=== PATIENT | male | born 1955 | race Caucasian/White ===

== ENCOUNTER 2017-03-26 11:49 | Emergency (ER) | payer BC, OTHER ==
--- NOTE | 2017-03-26 13:00 | EDM.PDOC ---
ED HPI GENERAL MEDICAL PROBLEM - General Chief Complaint: Lower Extremity Injury/Pain Stated Complaint: HURT LT ANKLE/ACHILLES Time Seen by Provider: 03/26/17 12:00 Source of Information: Reports: Patient, Family History Limitations: Reports: No Limitations - History of Present Illness INITIAL COMMENTS - FREE TEXT/NARRATIVE: pt arrived with pain in his heel area and achilles tendon area. He stepped out of the boat and heard something crack Onset: Today, Other ( pt stepped onto the boat and he heard something crack. ) Duration: Hour(s): Location: Reports: Lower Extremity, Right Associated Symptoms: Reports: No Other Symptoms Left Ankle Pain Score (Numeric/FACES): 2 - Related Data Allergies Allergy/AdvReac Type Severity Reaction Status Date / Time lisinopril Allergy Swelling Verified 03/26/17 12:04 Sulfa (Sulfonamide Allergy Hives Verified 03/26/17 12:04 Antibiotics) Home Meds: Home Meds Acetaminophen/HYDROcodone [[place] 325-10 MG] 1 tab PO ASDIRECTED PRN 03/26/17 [ History] Albuterol [IJD: Albuterol HFA] 03/26/17 [History] Budesonide/Formoterol Fumarate [Symbicort 160-4.5 Mcg Inhaler] 03/26/17 [ History] Furosemide [Lasix] 40 mg PO BID 03/26/17 [History] Gabapentin [Neurontin] 400 mg PO TID 03/26/17 [History] Metoprolol Succinate [Toprol Xl] 03/26/17 [History] SitaGLIPtin [Januvia] 03/26/17 [History] glipiZIDE [Glipizide ER] 10 mg PO DAILY 03/26/17 [History] metFORMIN [Glucophage] 1,000 mg PO BID 03/26/17 [History] Past Medical History Cardiovascular History: Reports: Hypertension Respiratory History: Reports: Asthma Musculoskeletal History: Reports: Arthritis, Back Pain, Chronic Neurological History: Reports: Neuropathy, Diabetic Endocrine/Metabolic History: Reports: Diabetes, Type II, Obesity/BMI 30+ Oncologic (Cancer) History: Reports: Prostate - Past Surgical History Other HEENT Surgeries/Procedures: deviated septum Male Surgical History: Reports: Prostatectomy Social & Family History - Tobacco Use Smoking Status *Q: Never Smoker - Caffeine Use Caffeine Use: Reports: None, Soda - Recreational Drug Use Recreational Drug Use: No Review of Systems - Review of Systems Review Of Systems: See Below Constitutional: Reports: No Symptoms Eyes: Reports: No Symptoms Ears: Reports: No Symptoms Nose: Reports: No Symptoms Mouth/Throat: Reports: No Symptoms Respiratory: Reports: No Symptoms Cardiovascular: Reports: No Symptoms GI/Abdominal: Reports: No Symptoms Genitourinary: Reports: No Symptoms Musculoskeletal: Reports: Other ( pt has a swollen rt leg with a ulcer on the anterior portion. ) Skin: Reports: Rash, Erythema, Wound, Other (pt has a superfial ulcer on the anterior rt lower leg. ) Neurological: Reports: No Symptoms ED EXAM, GENERAL - Physical Exam Exam: See Below Free Text/Narrative:: Pt arrived with a painful rt heel. He stepped onto the boat and he had the acute pain. Exam Limited By: No Limitations General Appearance: Alert, Moderate Distress Ears: Normal TMs Nose: Normal Inspection Throat/Mouth: Normal Inspection Head: Atraumatic Neck: Normal Inspection Respiratory/Chest: No Respiratory Distress GI/Abdominal: Soft Extremities: Pedal Edema, Redness, Other (pt does have good capillary filling, The medial aspect of the ankle is swollen but not sig tender. He has tenderness by the achilles tendon area. he is able to raise his toes and his achilles tendon funtion is good) Neurological: Alert, Oriented, Normal Cognition Psychiatric: Normal Affect Course - Vital Signs Last Recorded V/S: Last Vital Signs Temp 36.8 C 03/26/17 12:06 Pulse 60 03/26/17 12:06 Resp 18 03/26/17 12:06 BP 128/76 03/26/17 12:06 Pulse Ox 94 L 03/26/17 12:06 - Orders/Labs/Meds Orders: Active Orders 24 hr Category Date Time Status Ankle Min 3V Lt [CR] Stat Exams 03/26/17 12:23 Taken Calcaneous Lt [CR] Stat Exams 03/26/17 12:23 Taken - Re-Assessments/Exams Free Text/Narrative Re-Assessment/Exam: 03/26/17 13:08 xrays reveal no fractures present. Departure - Departure Time of Disposition: 12:59 Disposition: Home, Self-Care 01 Condition: Fair Clinical Impression: Contusion of right heel - Discharge Information Referrals: PCP,None [Primary Care Provider] - Forms: ED Department Discharge Care Plan Goals: elevate, cool pack, minimal wt bearing, cont cephalexen, see wound care follow up in [facility], exercise the foot with bringing the toes upward, If pain is worse return. a - My Orders Last 24 Hours: My Active Orders 03/26/17 12:23 Ankle Min 3V Lt [CR] Stat Calcaneous Lt [CR] Stat - Assessment/Plan Last 24 Hours: My Active Orders 03/26/17 12:23 Ankle Min 3V Lt [CR] Stat Calcaneous Lt [CR] Stat
--- NOTE | 2017-03-26 13:44 | CR ---
Soft tissue swelling most notably medially. There are 2 Ossific densities medial malleolus may indicate remote avulsion fragments or accessory ossicles. Add itional wall corticated ossific density laterally on the AP view may indicate accessory ossicle as it appears well-corticated. Correlate for point tenderness however. Moderate degenerative changes at th e ankle joint.
--- NOTE | 2017-03-26 13:45 | CR ---
Tiny calcaneal enthesophyte heel spur. No evidence for fracture. Soft tissue thickening at the Achill es tendon expected location.
== END 2017-03-26 13:11 | disposition home or self-care (01) ==
LOC: JP.ED 11:49
DX: S90.31XA Contusion of right foot, initial encounter (principal); E66.9 Obesity, unspecified; E11.9 Type 2 diabetes mellitus without complications; I10 Essential (primary) hypertension; Z88.2 Allergy status to sulfonamides; Z79.899 Other long term (current) drug therapy; Z79.84 Long term (current) use of oral hypoglycemic drugs; W22.8XXA Striking against or struck by other objects, initial encounter
CPT/HCPCS: 73610-26-LT; 73610-LT; 73650-26-LT; 73650-LT; 99284

== ENCOUNTER 2020-03-05 10:58 | Emergency (ER) | payer BC, MEDICARE ==
[2020-03-05] MEDS ORDERED: Sodium Chloride 0.9% 10 ML Syringe FLUSH PRN (11:37)
--- NOTE | 2020-03-05 11:39 | EDM.PDOC ---
ED HPI GENERAL MEDICAL PROBLEM - General Chief Complaint: Genitourinary Problem Stated Complaint: BLADDER INFECTION Time Seen by Provider: 03/05/20 11:20 Source of Information: Reports: Patient, EMS History Limitations: Reports: No Limitations (slow to respond and repeats answers ) - History of Present Illness INITIAL COMMENTS - FREE TEXT/NARRATIVE: Mihir is a 64 year old male whom present to [facility] via EMS for generalized weakness with low grade fever for the last 3 days. Mihir is visiting his elderly mother and felt too weak and blood pressure was too low to drive himself safely to ER this am. Mihir noticed dysuria about 1.5 days ago when he urinates and urinated in the bed last night which is not normal for him. Mihir denies pain just discomfort with urination. Mihir denies cough or URI symptoms concerning for COVID illness. Mihir has been on recurrent keflex and Cefzil antibiotic for boils and UTIs in the last 3-4 months. Mihir reports symptoms today are similar to previous UTI infections. Mihir denies headache, ST, chest pain, shortness of breath, abdominal pain, constipation or diarrhea, rashes or sore to his skin. - Related Data Allergies Allergy/AdvReac Type Severity Reaction Status Date / Time lisinopril Allergy Swelling Verified 03/05/20 11:03 Sulfa (Sulfonamide Allergy Hives Verified 03/05/20 11:03 Antibiotics) Home Meds: Home Meds Acetaminophen/HYDROcodone [[place] 325-10 MG] 1 tab PO ASDIRECTED PRN 03/26/17 [History] Albuterol [IJD: Albuterol HFA] 1 - 2 puff INH ASDIRECTED 03/26/17 [History] Furosemide [Lasix] 40 mg PO BID 03/26/17 [History] Gabapentin [Neurontin] 400 mg PO TID 03/26/17 [History] Metoprolol Succinate [Toprol Xl] 50 mg PO DAILY 03/26/17 [History] SitaGLIPtin [Januvia] 25 mg PO DAILY 03/26/17 [History] glipiZIDE [Glipizide ER] 20 mg PO DAILY 03/26/17 [History] metFORMIN [Glucophage] 1,000 mg PO BID 03/26/17 [History] Amoxicillin/Potassium Clav [Augmentin 875-125 Tablet] 1 each PO BID 10 Days #20 tablet 03/05/20 [Rx] Empagliflozin/Linagliptin [Glyxambi 25 mg-5 mg Tablet] 1 tab PO DAILY 03/05/20 [History] Fluticasone/Umeclidin/Vilanter [Trelegy Ellipta 100-62.5-25] 1 puff INH DAILY 03/05/20 [History] buPROPion HCL [Bupropion Xl] 150 mg PO DAILY 03/05/20 [History] Past Medical History Cardiovascular History: Reports: Heart Failure, Hypertension Respiratory History: Reports: Asthma, COPD Genitourinary History: Reports: UTI, Recurrent Musculoskeletal History: Reports: Arthritis, Back Pain, Chronic Neurological History: Reports: Neuropathy, Diabetic Endocrine/Metabolic History: Reports: Diabetes, Type II, Obesity/BMI 30+ Oncologic (Cancer) History: Reports: Prostate - Past Surgical History Other HEENT Surgeries/Procedures: deviated septum, septoplasty Male Surgical History: Reports: Prostatectomy Social & Family History - Tobacco Use Smoking Status *Q: Never Smoker - Caffeine Use Caffeine Use: Reports: Coffee, Tea - Alcohol Use Days Per Week of Alcohol Use: 3 Number of Drinks Per Day: 2 Total Drinks Per Week: 6 - Recreational Drug Use Recreational Drug Use: No ED ROS GENERAL - Review of Systems Review Of Systems: Comprehensive ROS is negative, except as noted in HPI. ED EXAM, GENERAL - Physical Exam Exam: See Below Exam Limited By: No Limitations General Appearance: WD/WN, No Apparent Distress, Lethargic (slwo to answer questions and responses are repeated ) Eye Exam: Bilateral Eye: EOMI, Normal Inspection Ears: Normal External Exam, Hearing Grossly Normal Nose: Normal Inspection Throat/Mouth: Normal Inspection, Normal Lips, Normal Voice, No Airway Compromise Head: Normocephalic Neck: Normal Inspection, Full Range of Motion Respiratory/Chest: No Respiratory Distress, Lungs Clear, Normal Breath Sounds, Chest Non-Tender Cardiovascular: Regular Rate, Rhythm, No Edema (legs have compression wraps) GI/Abdominal: Normal Bowel Sounds, Soft, Non-Tender, Other (limited due to abdominal girth) (Male) Exam: Deferred Rectal (Males) Exam: Deferred Extremities: Other (bilateral UE normal use and function without pain. BLE diabetic stockings and wraps applied. ) Neurological: Alert, Oriented, CN II-XII Intact, No Motor/Sensory Deficits Psychiatric: Normal Mood, Flat Affect Skin Exam: Warm, Dry, Intact, No Rash, Other (slightly pale ) EKG INTERPRETATION EKG Date: 03/05/20 Time: 11:51 Rhythm: NSR Rate (Beats/Min): 68 [place]: LAD-Left [place] Deviation P-Wave: Present QRS: Normal ST-T: Normal (non specific changes) QT: Prolonged (454 and QTc 483) LA/PQ Interval: LA prolonged 220 Comparison: NA - No Prior EKG EKG Interpretation Comments: Wandering baseline due to breathing and distant due to chest width Course - Vital Signs Last Recorded V/S: Last Vital Signs Temp 36.9 C 03/05/20 10:59 Pulse 66 03/05/20 14:00 Resp 18 03/05/20 14:00 BP 109/62 03/05/20 14:00 Pulse Ox 94 L 03/05/20 14:00 - Orders/Labs/Meds Orders: Active Orders 24 hr Category Date Time Status Cardiac Monitoring [RC] .As Directed Care 03/05/20 11:38 Active EKG Documentation Completion [RC] ASDIRECTED Care 03/05/20 11:37 Active Peripheral IV Care [RC] . DIRECTED Care 03/05/20 11:37 Active Vital Signs [RC] Q1H Care 03/05/20 11:35 Active Vital Signs [RC] Q1H Care 03/05/20 11:38 Active CULTURE BLOOD [BC] Urgent Lab 03/05/20 12:00 Received CULTURE BLOOD [BC] Urgent Lab 03/05/20 12:05 Received CULTURE URINE [RM] Stat Lab 03/05/20 11:01 Received Sodium Chloride 0.9% [Normal Saline] 1,000 ml Med 03/05/20 11:45 Active IV ASDIRECTED Sodium Chloride 0.9% [Saline Flush] Med 03/05/20 11:37 Active 10 ml FLUSH ASDIRECTED PRN Blood Culture x2 Reflex Set [OM.PC] Urgent Oth 03/05/20 11:35 Ordered Peripheral IV Insertion Adult [OM.PC] Urgent Oth 03/05/20 11:37 Ordered EKG 12 Lead [EK] Urgent Ther 03/05/20 11:37 Ordered Medication Orders Sodium Chloride (Normal Saline) 1,000 mls @ 1,000 mls/hr IV ASDIRECTED PATRIC Last Admin: 03/05/20 12:11 Dose: 1,000 mls/hr Documented by: SARIKA Sodium Chloride (Saline Flush) 10 ml FLUSH ASDIRECTED PRN PRN Reason: Keep Vein Open Last Admin: 03/05/20 12:11 Dose: 10 ml Documented by: SARIKA Labs: Laboratory Tests 03/05/20 03/05/20 03/05/20 Range/Units 11:01 12:00 12:00 WBC 6.3 (4.5-11.0) K/uL RBC 4.83 (4.30-5.90) M/uL Hgb 14.1 (12.0-15.0) g/dL Hct 42.7 (40.0-54.0) % MCV 88 (80-98) fL MCH 29 (27-31) pg MCHC 33 (32-36) % Plt Count 256 (150-400) K/uL Neut % (Auto) 74 H (36-66) % Lymph % (Auto) 13 L (24-44) % [place] % (Auto) 10 H (2-6) % Eos % (Auto) 2 (2-4) % Baso % (Auto) 0 (0-1) % Sodium 133 L (140-148) mmol/L Potassium 3.6 (3.6-5.2) mmol/L Chloride 94 L (100-108) mmol/L Carbon Dioxide 30 (21-32) mmol/L Anion Gap 12.6 (5.0-14.0) mmol/L BUN 33 H (7-18) mg/dL Creatinine 1.6 H (0.8-1.3) mg/dL Est Cr Clr Drug Dosing 58.02 mL/min Estimated GFR (MDRD) 44 L (>60) Glucose 293 H (74-106) mg/dL Lactic Acid (0.4-2.0) mmol/L Calcium 9.2 (8.5-10.1) mg/dL Total Bilirubin 0.7 (0.2-1.0) mg/dL AST 16 (15-37) U/L ALT 22 (12-78) U/L Alkaline Phosphatase 75 (46-116) U/L Troponin I (0.000-0.056) ng/mL C-Reactive Protein 8.96 H (0.0-0.3) mg/dL Total Protein 6.9 (6.4-8.2) g/dL Albumin 3.0 L (3.4-5.0) g/dL Globulin 3.9 H (2.3-3.5) g/dL Albumin/Globulin Ratio 0.8 L (1.2-2.2) Urine Color Yellow (YELLOW) Urine Appearance Cloudy A (CLEAR) Urine pH 5.5 (5.0-8.0) Ur Specific [place] 1.010 (1.008-1.030) Urine Protein Negative (NEGATIVE) mg/dL Urine Glucose (UA) 500 H (NEGATIVE) mg/dL Urine Ketones Negative (NEGATIVE) mg/dL Urine Occult Blood Moderate H (NEGATIVE) Urine Nitrite Positive H (NEGATIVE) Urine Bilirubin Negative (NEGATIVE) Urine Urobilinogen 0.2 (0.2-1.0) EU/dL Ur Leukocyte Esterase Small H (NEGATIVE) Urine RBC 10-20 H (0-5) Urine WBC >100 H (0-5) Ur Epithelial Cells Many Amorphous Sediment Not seen Urine Bacteria Moderate Urine Mucus Not seen 03/05/20 03/05/20 Range/Units 12:00 12:00 WBC (4.5-11.0) K/uL RBC (4.30-5.90) M/uL Hgb (12.0-15.0) g/dL Hct (40.0-54.0) % MCV (80-98) fL MCH (27-31) pg MCHC (32-36) % Plt Count (150-400) K/uL Neut % (Auto) (36-66) % Lymph % (Auto) (24-44) % [place] % (Auto) (2-6) % Eos % (Auto) (2-4) % Baso % (Auto) (0-1) % Sodium (140-148) mmol/L Potassium (3.6-5.2) mmol/L Chloride (100-108) mmol/L Carbon Dioxide (21-32) mmol/L Anion Gap (5.0-14.0) mmol/L BUN (7-18) mg/dL Creatinine (0.8-1.3) mg/dL Est Cr Clr Drug Dosing mL/min Estimated GFR (MDRD) (>60) Glucose (74-106) mg/dL Lactic Acid 1.6 (0.4-2.0) mmol/L Calcium (8.5-10.1) mg/dL Total Bilirubin (0.2-1.0) mg/dL AST (15-37) U/L ALT (12-78) U/L Alkaline Phosphatase (46-116) U/L Troponin I < 0.017 (0.000-0.056) ng/mL C-Reactive Protein (0.0-0.3) mg/dL Total Protein (6.4-8.2) g/dL Albumin (3.4-5.0) g/dL Globulin (2.3-3.5) g/dL Albumin/Globulin Ratio (1.2-2.2) Urine Color (YELLOW) Urine Appearance (CLEAR) Urine pH (5.0-8.0) Ur Specific [place] (1.008-1.030) Urine Protein (NEGATIVE) mg/dL Urine Glucose (UA) (NEGATIVE) mg/dL Urine Ketones (NEGATIVE) mg/dL Urine Occult Blood (NEGATIVE) Urine Nitrite (NEGATIVE) Urine Bilirubin (NEGATIVE) Urine Urobilinogen (0.2-1.0) EU/dL Ur Leukocyte Esterase (NEGATIVE) Urine RBC (0-5) Urine WBC (0-5) Ur Epithelial Cells Amorphous Sediment Urine Bacteria Urine Mucus Meds: Medications Generic Name Dose Route Start Last Admin Trade Name Freq PRN Reason Stop Dose Admin Sodium Chloride 1,000 mls @ 1,000 mls/hr 03/05/20 11:45 03/05/20 12:11 Normal Saline IV 1,000 mls/hr ASDIRECTED PATRIC Administration Sodium Chloride 10 ml 03/05/20 11:37 03/05/20 12:11 Saline Flush FLUSH 10 ml ASDIRECTED PRN Administration Keep Vein Open Discontinued Medications Generic Name Dose Route Start Last Admin Trade Name Freq PRN Reason Stop Dose Admin Ampicillin Sodium/Sulbactam 100 mls @ 200 mls/hr 03/05/20 13:42 03/05/20 14:04 Sodium 3 gm/ Sodium Chloride IV 03/05/20 14:11 200 mls/hr ONETIME ONE Administration - Re-Assessments/Exams Free Text/Narrative Re-Assessment/Exam: Reassessment: Blood pressure has improved with liter of fluids. Blood tests reviewed with patient and UA is available, indicating UTI with positive nitrates (likely e coli or gram negative infection). No previous UC known due to patient does not doctor locally or through any available EMR systems: [employer] or through [employer]. UC from 2016 was found noting e coli which was batista sensitive. Phone call placed by nursing staff to obtain UC results over khang last 2 year from [facility] in [place], [place]. Shared decision making regarding increased risk of poor bladder emptying with age, no longer has a prostate due to removal secondary to CA, increase risk of resistant bacteria, treated numerous times in the last 4 months with Keflex/cefzil for boils and UTI. Increased risk with use of Ciprofloxacin/Levaquin due to black box warnings. Opted for Augmentin 875mg BID x 7 days with initial IV dose of antibiotic during ER visit due to systemic symptoms with likely upper urinary tract (renal) infection. Mihir is agreeable with treatment plan and recommend staying in the area for the next 48-72 hours to ensure improving with recommended treatments. UC results may take 5-7 days to get antibiotic sensitivities to guide treatment. Close follow-up with PCP recommended to ensure correct treatment and resolution of symptoms. 03/05/20 13:43 Nursing staff was able to get in contact with [facility] nursing staff regarding previous UC testing over the last year for complicated UTI concerns due to diabetes and male gender. Unsure were patient has been treated for UTI due to not UC results available to review to improve treatment options for Mihir today. Updated [facility] staff that US was ordered today and recommended follow-up in 2 weeks to ensure resolution and consider evaluating for urinary retention, which would increased risk of resistant organism in the future. Patient was treatment with Unasyn and Augmentin during [place] ER visit today. 03/05/20 14:15 Departure - Departure Time of Disposition: 15:00 Disposition: Home, Self-Care 01 Clinical Impression: Pyelonephritis, UTI, Urinary tract infectious disease, Diabetes - Discharge Information Prescriptions: Amoxicillin/Potassium Clav [Augmentin 875-125 Tablet] 1 each PO BID 10 Days #20 tablet Instructions: Pyelonephritis, Adult, Antibiotic Resistance, Urinary Tract Infection, Adult, Antibiotic Medicine, Adult, Urosepsis, Adult, Preventing Diabetes Mellitus Complications, Preventing MDRO Infections Referrals: PCP,None [Primary Care Provider] - Forms: ED Department Discharge Additional Instructions: 1. Augmentin 875mg every am and pm for urinary tract infection x 10 days (until gone). 2. Monitor diet and blood sugar will ill due to increased risk fo dehydration, low blood pressure and infection getting into your blood stream (sepsis). 3. Ensure your are aware of previous urine culture results to help drive treatment options. 4. Check blood pressure in am before taking blood pressure lowering medications. 5. Stay in [place] area for the next 48-72 hrs, to allow return to ER if symptoms are not improving with current treatment plan. 6. Urine culture from today's visit may take 5-7 days to completed, copy of results will be send to your home address when completed. 7. Follow-up with your PCP in home area in 2 weeks (upon completion of antibiotics) to discuss recurrence of infection and need to discuss risk of poor bladder empty with age and history of prostate surgery. Possible referral to Urology, post void residual may be beneficial if noted urinary retention, intermittent safe catheterization may be need to prevent recurrence of UTI. Sepsis Event Note (ED) - Evaluation Sepsis Screening Result: No Definite Risk - Focused Exam Vital Signs: Vital Signs Temp Pulse Resp BP Pulse Ox 03/05/20 14:00 66 18 109/62 94 L 03/05/20 12:57 116/62 03/05/20 12:28 68 98/71 97 03/05/20 10:59 36.9 C 71 18 97/65 96 03/05/20 10:58 71 97/65 94 L - My Orders Last 24 Hours: My Active Orders 03/05/20 11:01 CULTURE URINE [RM] Stat 03/05/20 11:35 Vital Signs [RC] Q1H Blood Culture x2 Reflex Set [OM.PC] Urgent 03/05/20 11:37 EKG Documentation Completion [RC] ASDIRECTED Peripheral IV Care [RC] . DIRECTED Sodium Chloride 0.9% [Saline Flush] 10 ml FLUSH ASDIRECTED PRN Peripheral IV Insertion Adult [OM.PC] Urgent EKG 12 Lead [EK] Urgent 03/05/20 11:38 Cardiac Monitoring [RC] .As Directed Vital Signs [RC] Q1H 03/05/20 11:45 Sodium Chloride 0.9% [Normal Saline] 1,000 ml IV ASDIRECTED 03/05/20 12:00 CULTURE BLOOD [BC] Urgent 03/05/20 12:05 CULTURE BLOOD [BC] Urgent - Assessment/Plan Last 24 Hours: My Active Orders 03/05/20 11:01 CULTURE URINE [RM] Stat 03/05/20 11:35 Vital Signs [RC] Q1H Blood Culture x2 Reflex Set [OM.PC] Urgent 03/05/20 11:37 EKG Documentation Completion [RC] ASDIRECTED Peripheral IV Care [RC] . DIRECTED Sodium Chloride 0.9% [Saline Flush] 10 ml FLUSH ASDIRECTED PRN Peripheral IV Insertion Adult [OM.PC] Urgent EKG 12 Lead [EK] Urgent 03/05/20 11:38 Cardiac Monitoring [RC] .As Directed Vital Signs [RC] Q1H 03/05/20 11:45 Sodium Chloride 0.9% [Normal Saline] 1,000 ml IV ASDIRECTED 03/05/20 12:00 CULTURE BLOOD [BC] Urgent 03/05/20 12:05 CULTURE BLOOD [BC] Urgent
[2020-03-05] MEDS ORDERED: Sodium Chloride 0.9% 1,000 ML IV SCH (11:45)
[2020-03-05] MEDS ORDERED: Ampicillin/Sulbactam Na 3 GM in Sodium Chloride 0.9% 100 ML IV ONE (13:42)
== END 2020-03-05 15:00 | disposition home or self-care (01) ==
LOC: JP.ED 10:58
DX: N12 Tubulo-interstitial nephritis, not specified as acute or chronic (principal); N39.0 Urinary tract infection, site not specified; E11.40 Type 2 diabetes mellitus with diabetic neuropathy, unspecified; I11.0 Hypertensive heart disease with heart failure; I50.9 Heart failure, unspecified; J44.9 Chronic obstructive pulmonary disease, unspecified; M19.90 Unspecified osteoarthritis, unspecified site; E66.9 Obesity, unspecified; Z68.42 Body mass index [BMI] 45.0-49.9, adult; Z88.2 Allergy status to sulfonamides; Z88.8 Allergy status to other drugs, medicaments and biological substances; Z79.899 Other long term (current) drug therapy; Z79.84 Long term (current) use of oral hypoglycemic drugs
CPT/HCPCS: 36415; 80053; 81001; 83605; 84484; 85025; 86140; 87040; 87086; 87088; 87186; 93005; 96361; 96365; 99285; J0295; J7030; J7050; 93010; 99283